=== PATIENT | female | born 1995 | race Caucasian/White ===

== ENCOUNTER 2017-06-22 12:03 | Emergency (ER) | payer BC ==
[~2017-06-22] VITALS: Ht 165.1 cm; Wt 64.0 kg
[2017-06-22] MEDS ORDERED: OXYC-100 PO (12:12)
[2017-06-22] MEDS ORDERED: METF500T4 PO (12:12)
[2017-06-22] MEDS ORDERED: LORA2VIA33 IJ (12:12)
[2017-06-22] MEDS ORDERED: KETOROLAC 60MG/2ML VIAL IM ONE (14:45)
[2017-06-22] MEDS ORDERED: LORAZEPAM 1MG TABLET PO ONE (14:45)
[2017-06-22 15:23] VITALS: BP 122/87
[2017-06-22] MEDS ORDERED: DIPHENHYDRAMINE 12.5MG/5ML UDC PO ONE (15:30)
== END 2017-06-22 16:29 | disposition home or self-care (01) ==
LOC: ER 12:26
DX: M54.9 Dorsalgia, unspecified (principal); F41.9 Anxiety disorder, unspecified; E11.9 Type 2 diabetes mellitus without complications; F17.200 Nicotine dependence, unspecified, uncomplicated; R19.7 Diarrhea, unspecified
CPT/HCPCS: 81025; 82962; 96372; 99284; J1885; Z7610; Q0163